=== PATIENT | female | born 1995 | race Caucasian/White ===

== ENCOUNTER 2021-09-20 17:00 | Emergency (ER) | payer OTHER, SELFPAY ==
--- NOTE | 2021-09-20 17:04 | ED.URI ---
HPI - URI/Sore Throat General Chief Complaint: Medical Clearance Stated Complaint: Cough Time Seen by Provider: 09/20/21 17:04 Source: patient and RN notes reviewed History of Present Illness HPI Narrative: Patient is a 26-year-old female who presents the urgent care with request of needing a rapid Covid swab. Patient states that she is supposed be working [facility] [employer] on [employer] on Wednesday and was unable to find a facility to swab her with a rapid Covid. Patient is nonsymptomatic at this time. Patient has not been Covid vaccinated. Denies of any recent illness. No other acute complaints. No acute distress noted. Patient aware of the plan of care. Some parts of this dictation were generated by voice recognition software and may contain typographical and/or grammatical inaccuracies. Related Data Home Medications Medication Instructions Recorded Confirmed No Home Medications 09/20/21 09/20/21 Allergies Allergy/AdvReac Type Severity Reaction Status Date / Time No Known Allergies Allergy Verified 09/20/21 17:24 Review of Systems Review of Systems: CONSTITUTIONAL: Denies fever, chills, or sweats. EYES: Denies visual changes, redness, or discharge. ENT: Denies rhinorrhea, congestion, sore throat, or otalgia. CARDIOVASCULAR: Denies chest pain, palpitations, or edema. RESPIRATORY: Denies cough or dyspnea. GASTROINTESTINAL: Denies abdominal pain, nausea, vomiting, or diarrhea. GENITOURINARY: Denies dysuria or hematuria. SKIN: Denies rash or itching. MUSCULOSKELETAL: Denies back pain, joint pain, or myalgia. NEUROLOGIC: Denies headache, numbness, or weakness. All other systems reviewed are negative, except as documented in HPI. PMFSH Comments At the time of my signature, I reviewed and agree with the nursing past medical, surgical, social, and family history. There is no relevant family history pertinent to the patient complaint. Exam Narrative: GENERAL: This is a well-nourished, well-developed patient, in no apparent distress. HEAD: normocephalic, atraumatic. EYES: PERRL. Sclera clear/white. Vision is grossly intact. EARS: External ears normal NOSE: External nose normal with no obvious nasal discharge, nares without redness, no rhinorrhea. THROAT: Mucous membranes moist NECK: Neck supple CARDIOVASCULAR: Regular rate and rhythm without murmurs, gallops, or rubs. RESPIRATORY: Clear to auscultation. Breath sounds equal bilaterally. No wheezes, rales, or rhonchi. SKIN: warm, intact with no suspicious lesions or rash, good texture and turgor. NEURO: awake, alert, and oriented to person, place and time. There were no obvious focal neurologic abnormalities. EXTREMITIES: No clubbing, cyanosis, or edema. Course Vital Signs Vital signs: Vital Signs Temperature 98.5 F 09/20/21 17:21 Pulse Rate 84 09/20/21 17:21 Respiratory Rate 16 09/20/21 17:21 Blood Pressure 119/67 09/20/21 17:21 Pulse Oximetry 100 09/20/21 17:21 Temperature 98.5 F 09/20/21 17:21 Pulse Rate 84 09/20/21 17:21 Respiratory Rate 16 09/20/21 17:21 Blood Pressure 119/67 09/20/21 17:21 Pulse Oximetry 100 09/20/21 17:21 Reviewed MDM - URI/Sore Throat MDM Narrative Medical decision making narrative: Reviewed lab results with the patient. She is aware that her rapid Covid swab was negative. Differential Diagnosis Differential diagnosis: Likely upper respiratory infection, otitis media, sinusitis, viral infection, bronchitis, influenza and pharyngitis Lab Data Attestation: I reviewed the patient's lab results. Critical Care Time Critical Care Time Critical Care Time: No Discharge Plan Discharge Clinical Impression: Encounter for laboratory testing for COVID-19 virus Patient Disposition: Home, Self-Care Condition: Stable Additional Instructions: Reviewed lab results with the patient. She is aware that her rapid Covid swab was negative. Prescriptions: No Action No Home Medications RF: 0
[2021-09-20 17:21] VITALS: BP 119/67; PULSE 84; RESP 16; TEMP 36.9; O2SAT 100
== END 2021-09-20 17:44 | disposition home or self-care (01) ==
PROVIDERS: Emergency Provider Nurse Practitioner Family
DX: Z20.822 Contact with and (suspected) exposure to COVID-19 (principal)
CPT/HCPCS: 87426; 99203; C9803; G0463